=== PATIENT | female | born 1985 | race Caucasian/White ===

== ENCOUNTER 2019-02-22 13:35 | Emergency (ER) | payer MEDICAID ==
[~2019-02-22] VITALS: Ht 167.6 cm; Wt 95.5 kg
[2019-02-22 14:43] LABS: CLARITY,URINE SLIGHTLY CLOUDY (Clear); COLOR,URINE STRAW (Yellow); GLUCOSE, URINE NEGATIVE (Neg); KETONES,URINE NEGATIVE (Neg); LEUKOCYTE ESTERASE ,URINE TRACE (Neg); NITRITES, URINE NEGATIVE (Neg); OCCULT BLOOD,URINE NEGATIVE (Neg); PROTEIN,URINE NEGATIVE (Neg); UROBILINOGEN,URINE 0.2 E.U/dL (0.2-1.0)
[2019-02-22 14:44] LABS: UA COLLECTION TYPE CLN CATCH MIDSTREAM
--- NOTE | 2019-02-22 14:52 | NUR ---
ATTEMPTED TO ASSIST WITH BLOOD DRAW USING ULTRASOUND, PT REFUSES ANY LABS AT THIS TIME
[2019-02-22 14:53] LABS: BACTERIA,URINE 1+ /HPF (Neg); MUCUS STRANDS FEW /LPF (Neg); RBC,URINE 0-2 /HPF (0-2); SQUAMOUS EPITHELIAL CELL,UR FEW /LPF (FEW); WBC,URINE 0-4 /HPF (0-4)
[2019-02-22 14:58] LABS: URINE HCG NEGATIVE (NEG)
[2019-02-22 15:08] LABS: BASOPHILS # (AUTO) 0.1 X10'3 (0-0.2); BASOPHILS % (AUTO) 1.1 % (0-1); EOSINOPHILS # (AUTO) 0.5 X10'3 (0-0.9); EOSINOPHILS % (AUTO) 4.8 % (0-6); HEMATOCRIT 38.3 % (35.0-45.0); LYMPHOCYTES # (AUTO) 2.6 X10'3 (1.1-4.8); LYMPHOCYTES % (AUTO) 23.6 % (21-51); MEAN CORPUSCULAR HEMOGLOBIN 30.8 PG (27.0-31.0); MEAN CORPUSCULAR VOLUME 90.6 FL (78-98); MEAN PLATELET VOLUME 7.5 FL (7.4-10.4); MONOCYTES # (AUTO) 0.5 X10'3 (0-0.9); MONOCYTES % (AUTO) 4.6 % (2-12); NEUTROPHILS # (AUTO) 7.3 X10'3 (1.8-7.7); NEUTROPHILS % (AUTO) 65.9 % (42-75); PLATELET COUNT 392 X10'3 (140-440); RED BLOOD COUNT 4.23 X10'6 (4.20-5.60); RED CELL DISTRIBUTION WIDTH 14.4 % (11.5-14.5)
[2019-02-22 15:09] LABS: URINE AMPHETAMINE SCREEN NEGATIVE (Neg); URINE BARBITUATE SCREEN NEGATIVE (Neg); URINE BENZODIAZEPINES SCREEN NEGATIVE (Neg); URINE CANNABINOID SCREEN POSITIVE (Neg); URINE COCAINE SCREEN NEGATIVE (Neg); URINE METHADONE SCREEN NEGATIVE (Neg); URINE OPIATE SCREEN NEGATIVE (Neg); URINE PHENCYCLIDINE SCREEN NEGATIVE (Neg)
--- NOTE | 2019-02-22 15:15 | NUR ---
Patient was moved from bed 16 to bed 23.
[2019-02-22] MEDS ORDERED: ATOR10TA87 PO (15:40)
[2019-02-22] MEDS ORDERED: ESCI10TA54 PO (15:40)
[2019-02-22] MEDS ORDERED: BUSP10TA11 PO (15:40)
[2019-02-22] MEDS ORDERED: PROP10TA10 PO (15:40)
[2019-02-22] MEDS ORDERED: ARIP5TAB14 PO (15:57)
[2019-02-22] MEDS ORDERED: HYDR-3686 PO (15:57)
[2019-02-22] MEDS ORDERED: IBUP-1984 PO (15:57)
--- NOTE | 2019-02-22 16:17 | NUR ---
Assumed pt care. Agreed with initial assessment done by Flor RAYMOND.
[2019-02-22 16:18] LABS: ALANINE AMINOTRANSFERASE 70 U/L (12-78); ALBUMIN 3.9 G/DL (3.4-5.0); ALKALINE PHOSPHATASE 125 IU/L (46-116); ANION GAP 6 (8-16); ASPARTATE AMINO TRANSFERASE 30 U/L (10-37); BILIRUBIN,TOTAL 0.4 MG/DL (0.1-1.0); BLOOD UREA NITROGEN 18 MG/DL (7-18); BUN/CREATININE RATIO 22.5 (6.6-38.0); CALCIUM 9.2 MG/DL (8.5-10.1); CHLORIDE 105 MMOL/L (99-107); GLUCOSE 94 MG/DL (70-104); POTASSIUM 3.7 MMOL/L (3.5-5.1); SODIUM 140 MMOL/L (135-145); TOTAL CARBON DIOXIDE 29.4 MMOL/L (24-32); TOTAL PROTEIN 7.7 G/DL (6.4-8.2); eGFR 82 ML/MIN
[2019-02-22 16:28] LABS: BETA HCG,QUANTITATIVE 2 mIU/ml; ETHANOL < 0.010 GM/DL (0.0-0.010)
[2019-02-22] MEDS ORDERED: hydrOXYzine 25 MG tablet PO PRN (16:55)
--- NOTE | 2019-02-22 17:29 | NUR ---
Packet has been faxed to [facility]
--- NOTE | 2019-02-22 18:35 | NUR ---
Nurse to Nurse report done for [facility] [place].
--- NOTE | 2019-02-22 18:50 | NUR ---
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 She reports being even with a negative test and reports being "famous on social media." but states it under all her aliases. She talks about her being famous and states "I talk to thousands of people at a time." She reports that she ended up in [place] from [place] because her kicked her out. She says her Aunt Anuja brought her to a counseling center where she was put on a 5150 and brought to the ER because she walked in to the counseling center and she then stated "I showed them "here is my crazy." and they said wow that's crazy, so now I'm here." Patient has been cooperative and friendly.
--- NOTE | 2019-02-22 19:24 | NUR ---
[facility] called and reported the patient was accepted to [facility] [address] [facility] will be here to transport patient at 2014.
[2019-02-22] MEDS ORDERED: busPIRone 5mg tablet PO SCH (20:00)
[2019-02-22] MEDS ORDERED: propranolol 10mg tablet PO SCH (20:00)
[2019-02-22 20:42] VITALS: BP 104/61
[2019-02-23] MEDS ORDERED: ibuprofen tablet 400 MG TABLET PO SCH
[2019-02-23] MEDS ORDERED: aripiprazole 5mg tablet PO SCH (08:00)
[2019-02-23] MEDS ORDERED: ESCITALOPRAM OXALATE 5 MG TABLET PO SCH (08:00)
[2019-02-23] MEDS ORDERED: atorvastatin 10mg tablet PO SCH (08:00)
== END 2019-02-22 20:47 ==
LOC: ER 13:36
DX: F22 Delusional disorders (principal); F20.9 Schizophrenia, unspecified; F31.9 Bipolar disorder, unspecified; E03.9 Hypothyroidism, unspecified; F12.90 Cannabis use, unspecified, uncomplicated; Z88.0 Allergy status to penicillin; Z79.899 Other long term (current) drug therapy
CPT/HCPCS: 36415; 80053; 80305; 80320; 81001; 81025; 84443; 84702; 85025; 99285; Z7610

== ENCOUNTER 2021-05-03 13:09 | Emergency (ER) | payer MEDICAID, OTHER ==
[~2021-05-03] VITALS: Ht 165.1 cm; Wt 105.0 kg
[2021-05-03 13:09] VITALS: BP 139/80
[~2021-05-03 13:09] MED LIST: ARIP5TAB14 PO; ATOR10TA87 PO; BUSP10TA11 PO; ESCI-8 PO; HYDR-3686 PO; IBUP-1984 PO; PROP10TA10 PO
[2021-05-03] MEDS ORDERED: AZI25OT PO (14:43)
[2021-05-03] MEDS ORDERED: BENZ-38 PO (14:44)
== END 2021-05-03 15:35 | disposition home or self-care (01) ==
LOC: ER 13:11
DX: J06.9 Acute upper respiratory infection, unspecified (principal); Z20.822 Contact with and (suspected) exposure to COVID-19; R51.9 Headache, unspecified; R09.89 Other specified symptoms and signs involving the circulatory and respiratory systems; R05.9 Cough, unspecified; R06.02 Shortness of breath; R50.9 Fever, unspecified; J45.909 Unspecified asthma, uncomplicated; F31.9 Bipolar disorder, unspecified; F20.9 Schizophrenia, unspecified; F12.90 Cannabis use, unspecified, uncomplicated; Z88.0 Allergy status to penicillin; Z79.2 Long term (current) use of antibiotics; Z79.899 Other long term (current) drug therapy
CPT/HCPCS: 71045; 87635; 99284; C9803

== ENCOUNTER 2021-12-27 02:21 | Inpatient (IN) | payer MEDICARE, MEDICAID ==
[2021-12-27] VITALS (15 sets, daily range): BP systolic 106–126; BP diastolic 60–70
[~2021-12-27] VITALS: Ht 165.1 cm; Wt 104.0 kg
[2021-12-27] MEDS ORDERED: normal saline 1000ML IV soln IVB ONE (02:40)
[2021-12-27] MEDS ORDERED: ketorolac trometh. 30mg/ml inj. IV ONE (02:40)
[2021-12-27 02:47] LABS: BASOPHILS # (AUTO) 0.1 X10'3 (0-0.2); BASOPHILS % (AUTO) 0.3 % (0-1); EOSINOPHILS # (AUTO) 0.1 X10'3 (0-0.9); EOSINOPHILS % (AUTO) 0.3 % (0-6); HEMATOCRIT 37.6 % (35.0-45.0); HEMOGLOBIN 12.9 g/dl (12.0-16.0); LYMPHOCYTES # (AUTO) 1.7 X10'3 (1.1-4.8); MEAN CORPUSCULAR HGB CONC 34.2 g/dL (33.0-36.5); MEAN CORPUSCULAR VOLUME 87.6 FL (78-98); MEAN PLATELET VOLUME 7.3 FL (7.4-10.4); MONOCYTES # (AUTO) 0.4 X10'3 (0-0.9); MONOCYTES % (AUTO) 1.8 % (2-12); NEUTROPHILS # (AUTO) 18.9 X10'3 (1.8-7.7); NEUTROPHILS % (AUTO) 89.6 % (42-75); PLATELET COUNT 416 X10'3 (140-440); RED CELL DISTRIBUTION WIDTH 13.9 % (11.5-14.5); WHITE BLOOD COUNT 21.2 X10'3 (4.5-11.0)
[2021-12-27 03:00] LABS: ALANINE AMINOTRANSFERASE 32 U/L (12-78); ALBUMIN 3.8 G/DL (3.4-5.0); ALBUMIN/GLOBULIN RATIO 0.8 (1.1-1.5); ALKALINE PHOSPHATASE 105 IU/L (46-116); ANION GAP 11 (8-16); ASPARTATE AMINO TRANSFERASE 18 U/L (10-37); BILIRUBIN,TOTAL 0.4 MG/DL (0.1-1.0); BLOOD UREA NITROGEN 11 MG/DL (7-18); BUN/CREATININE RATIO 13.8 (6.6-38.0); CALCIUM 10.2 MG/DL (8.5-10.1); CHLORIDE 100 MMOL/L (99-107); GLUCOSE 137 MG/DL (70-104); LIPASE 63 U/L (73-393); POTASSIUM 4.3 MMOL/L (3.5-5.1); SODIUM 138 MMOL/L (135-145); TOTAL CARBON DIOXIDE 26.6 MMOL/L (24-32); TOTAL PROTEIN 8.6 G/DL (6.4-8.2); eGFR 81 ML/MIN
[2021-12-27] MEDS ORDERED: LAMO150T2 PO (04:25)
[2021-12-27] MEDS ORDERED: IBUP-1984 PO (04:25)
[2021-12-27] MEDS ORDERED: morphine 4 MG/ML inj SYRINge IV ONE (04:25)
[2021-12-27] MEDS ORDERED: ondansetron/PF 4mg/2ml inj IV ONE (04:25)
[2021-12-27] MEDS ORDERED: HYDR-3686 PO (04:25)
[2021-12-27] MEDS ORDERED: BUPR150T8 PO (04:25)
[2021-12-27 04:32] LABS: CLARITY,URINE CLEAR (Clear); COLOR,URINE YELLOW (Yellow); GLUCOSE, URINE NEGATIVE (Neg); KETONES,URINE 40 mg/dl (Neg); LEUKOCYTE ESTERASE ,URINE NEGATIVE (Neg); NITRITES, URINE NEGATIVE (Neg); OCCULT BLOOD,URINE SMALL (Neg); PROTEIN,URINE NEGATIVE (Neg); UROBILINOGEN,URINE 0.2 E.U/dL (0.2-1.0)
[2021-12-27 04:37] LABS: URINE HCG NEGATIVE (NEG)
[2021-12-27 04:38] LABS: UA COLLECTION TYPE CLN CATCH MIDSTREAM
[2021-12-27 04:40] LABS: WBC,URINE 0-4 /HPF (0-4)
[2021-12-27 04:41] LABS: BACTERIA,URINE FEW /HPF (Neg); MUCUS STRANDS FEW /LPF (Neg); SQUAMOUS EPITHELIAL CELL,UR FEW /LPF (FEW)
[2021-12-27] MEDS ORDERED: CefTRIAXone 2gm/D5W 50ml BAG 50 ML IV ONE (04:50)
[2021-12-27] MEDS ORDERED: ondansetron/PF 4mg/2ml inj IV PRN ×2 (04:55→09:15)
[2021-12-27] MEDS ORDERED: magnesium Cl slow-release 64mg tablet PO PRN (04:55)
[2021-12-27] MEDS ORDERED: magnesium 4gm in 100ml NS 100 ML IV PRN (04:55)
[2021-12-27] MEDS ORDERED: magnesium hydroxide 30ml (MOM) UD suspension PO PRN (04:55)
[2021-12-27] MEDS ORDERED: potassium Cl 40MEQ/1/2NS 520ml 520 ML IV PRN (04:55)
[2021-12-27] MEDS ORDERED: potassium Cl 20 mEq SR tablet PO PRN ×2 (04:55)
[2021-12-27] MEDS ORDERED: acetaminophen 325mg tablet PO PRN (04:55)
[2021-12-27] MEDS ORDERED: mag hydrox/Alum hydrox/simeth 30ml oral suspension PO PRN (04:55)
[2021-12-27] MEDS ORDERED: BUPR-317 PO (05:08)
[2021-12-27] MEDS ORDERED: hydrOXYzine 25 MG tablet PO PRN (05:15)
[2021-12-27] MEDS: normal saline 1000ml 1,000 ML IV SCH ×3 (05:25→20:16)
[2021-12-27] MEDS: morphine 2 MG/ML inj. syringe IV PRN ×4 (07:43→21:03)
[2021-12-27] MEDS: lamoTRIgine 100mg tablet PO SCH (08:00)
[2021-12-27] MEDS: docusate sod 100mg capsule PO SCH ×2 (08:00→20:15)
[2021-12-27] MEDS ORDERED: QUEtiapine 25mg tablet PO SCH (08:00)
[2021-12-27] MEDS: K and/or MAG REPLACEMENT MC SCH ×2 (08:00→20:00)
[2021-12-27] MEDS: buPROPion SR 150mg tablet PO SCH (08:00)
[2021-12-27] MEDS: lamoTRIgine 25mg tablet PO SCH (08:00)
--- NOTE | 2021-12-27 08:32 | NUR ---
partner Jeferson Tompkins [phone]. may give full disclosure to him.
[2021-12-27] MEDS ORDERED: BUPIVAcaine/PF 2.5 mg/ml (0.25%) 30ml vial ONE (08:36)
--- NOTE | 2021-12-27 08:39 | NUR ---
TO OR VIA GURNEY, ACCOMPANIED BY OR TECH. PT IN STABLE CONDITION.
[2021-12-27] MEDS ORDERED: midazolam 1 mg/ML 2ml injection ONE (09:11)
[2021-12-27] MEDS ORDERED: fentaNYL/PF 50MCG/1 ML 2ML syringe ONE (09:11)
[2021-12-27] MEDS ORDERED: propofol inj 20 ML IV ONE (09:11)
[2021-12-27] MEDS ORDERED: LIDOcaine 2% (20mg/ml) 5ml vial ONE (09:12)
[2021-12-27] MEDS ORDERED: ringers solution, lacted 1,000 ML IV SCH (09:15)
[2021-12-27] MEDS ORDERED: proCHLORperazine 10 MG/2 ml inj IV PRN (09:15)
[2021-12-27] MEDS ORDERED: morphine 4 MG/ML inj SYRINge IV PRN (09:15)
[2021-12-27] MEDS ORDERED: morphine 2 MG/ML inj. syringe IV PRN (09:15)
[2021-12-27] MEDS ORDERED: meperidine/PF 25mg/ml syringe IV PRN ×3 (09:15)
[2021-12-27] MEDS ORDERED: ondansetron/PF 4mg/2ml inj ONE (09:37)
[2021-12-27] MEDS ORDERED: dexamethasone sod phosphate 4mg/ml inj. ONE (09:37)
[2021-12-27] MEDS ORDERED: CefTRIAXone 2000mg inj ONE (09:39)
[2021-12-27] MEDS ORDERED: meperidine/PF 25mg/ml syringe ONE (09:55)
--- NOTE | 2021-12-27 10:45 | NUR ---
Received from OR via BED, accompanied by Anesthesiologist and report given by Anesthesiologist. PATIENT WAKING UP, NO S/S OF PAIN, V/S WNL, SCD ON, 20G TO LUE, ABDOMEN LAP SITES X4 DERMABONDED CLEAN W/ NO S/S OF COMPLICATIONS
--- NOTE | 2021-12-27 11:12 | NUR ---
Patient in room ED 7. I have received report from Valdez RAYMOND and had the opportunity to ask questions and awaiting patients arrival
--- NOTE | 2021-12-27 11:25 | NUR ---
PATIENT WAKING UP, NO S/S OF PAIN, V/S WNL, SCD ON, 20G TO LUE, ABDOMEN LAP SITES X4 DERMABONDED CLEAN W/ NO S/S OF COMPLICATIONS. PATIENT TAKEN TO 349B ROOM WITH ALL BELONGINGS AND HOOKED UP TO MONITORS IN ROOM AND GIVEN CALL LIGHT, REPORT GIVEN TO RN WHO HAS TAKEN OVER PATIENT CARE.
--- NOTE | 2021-12-27 18:01 | NUR ---
patient appears stable four durobond sites CDI. commenced on VS stable. Ambulated x1 300ft, sig other visiting. passing small amounts of gas. Morphine x2 for pain with good results.
--- NOTE | 2021-12-27 18:18 | NUR ---
Problems reprioritized. Patient report given, questions answered & plan of care reviewed with renan RAYMOND.
--- NOTE | 2021-12-27 18:30 | NUR ---
Patient in room [facility]. I have received report from PIERCE and had the opportunity to ask questions and assume patient care.
[2021-12-28 02:00] VITALS: BP 96/56
[2021-12-28] MEDS: morphine 2 MG/ML inj. syringe IV PRN ×2 (02:35→07:56)
[2021-12-28 06:00] VITALS: BP 113/66
--- NOTE | 2021-12-28 06:29 | NUR ---
Patient in room [facility]. I have received report from Avani RAYMOND and had the opportunity to ask questions and assume patient care.
[2021-12-28 06:40] LABS: BASOPHILS # (AUTO) 0.1 X10'3 (0-0.2); BASOPHILS % (AUTO) 0.4 % (0-1); EOSINOPHILS % (AUTO) 0.2 % (0-6); HEMATOCRIT 32.2 % (35.0-45.0); HEMOGLOBIN 10.5 g/dl (12.0-16.0); LYMPHOCYTES # (AUTO) 1.9 X10'3 (1.1-4.8); LYMPHOCYTES % (AUTO) 12.7 % (21-51); MEAN CORPUSCULAR HEMOGLOBIN 29.1 PG (27.0-31.0); MEAN CORPUSCULAR HGB CONC 32.5 g/dL (33.0-36.5); MEAN CORPUSCULAR VOLUME 89.3 FL (78-98); MEAN PLATELET VOLUME 7.7 FL (7.4-10.4); MONOCYTES # (AUTO) 0.8 X10'3 (0-0.9); MONOCYTES % (AUTO) 5.6 % (2-12); NEUTROPHILS % (AUTO) 81.1 % (42-75); PLATELET COUNT 324 X10'3 (140-440); RED BLOOD COUNT 3.61 X10'6 (4.20-5.60); RED CELL DISTRIBUTION WIDTH 14.4 % (11.5-14.5); WHITE BLOOD COUNT 14.7 X10'3 (4.5-11.0)
[2021-12-28 06:48] LABS: ALANINE AMINOTRANSFERASE 37 U/L (12-78); ALBUMIN 2.6 G/DL (3.4-5.0); ALBUMIN/GLOBULIN RATIO 0.7 (1.1-1.5); ALKALINE PHOSPHATASE 78 IU/L (46-116); ANION GAP 7 (8-16); ASPARTATE AMINO TRANSFERASE 26 U/L (10-37); BILIRUBIN,TOTAL 0.3 MG/DL (0.1-1.0); BLOOD UREA NITROGEN 7 MG/DL (7-18); BUN/CREATININE RATIO 10.8 (6.6-38.0); CHLORIDE 107 MMOL/L (99-107); CREATININE 0.65 MG/DL (0.40-0.90); GLUCOSE 114 MG/DL (70-104); MAGNESIUM 1.9 MG/DL (1.5-2.4); POTASSIUM 3.7 MMOL/L (3.5-5.1); SODIUM 139 MMOL/L (135-145); TOTAL CARBON DIOXIDE 25.2 MMOL/L (24-32); TOTAL PROTEIN 6.5 G/DL (6.4-8.2); eGFR > 90 ML/MIN
--- NOTE | 2021-12-28 06:48 | NUR ---
Problems reprioritized. Patient report given, questions answered & plan of care reviewed with
[2021-12-28] MEDS: docusate sod 100mg capsule PO SCH (07:21)
[2021-12-28] MEDS: lamoTRIgine 100mg tablet PO SCH (07:22)
[2021-12-28] MEDS: lamoTRIgine 25mg tablet PO SCH (07:23)
[2021-12-28] MEDS: buPROPion SR 150mg tablet PO SCH (07:24)
[2021-12-28 07:30] VITALS: BP 112/68
[2021-12-28] MEDS ORDERED: CefTRIAXone/D5W-Rocephin 1gm 50 ML IV SCH (08:00)
[2021-12-28] MEDS: K and/or MAG REPLACEMENT MC SCH (08:00)
--- NOTE | 2021-12-28 08:45 | NUR ---
as instructor, i reviewed student nurse charting
--- NOTE | 2021-12-28 09:10 | NUR ---
Malnutrition consult: Pt s/p laparoscopic cholecystectomy this admit per EMR. Pt does not think she has lost a significant amount of wt recently though has had some decrease in appetite over the last couple of weeks r/t abd pain. No visible signs of muscle/fat wasting observed. No edema noted. Pt does not meet minimum criteria for malnutrition at this time. Addendum: 12/28/21 at [address] Amended: Links added.
[2021-12-28 11:00] VITALS: BP 125/70
[2021-12-28] MEDS ORDERED: HYDR-3965 PO (11:49)
[2021-12-28] MEDS ORDERED: FLU VACC QS2022-23(6MOS UP)/PF 60 MCG/0.5 ML SYRINGE IMVAC ONE (12:00)
--- NOTE | 2021-12-28 15:26 | NUR ---
ALL DC INSTRUCTIONS GIVEN TO PATIENT,patient DC home via private car with friend to home.
--- NOTE | 2021-12-30 10:41 | NUR ---
Case Management DC follow up:Spoke with Patient via telephone. S/P: Patient Reports:, Denies: Acute/continuous CP, emergent SOB, resp distress, N/V, vertigo, syncope episodes, .Verbalizes her abdominal incisions are intact, no s/s of infection.Verbalizes abdominal pain as a 2-3 on pain scale of one to ten.Verbalizes abdominal distention has decreased, and she has had a bowel movement. Denies : dysuria, hematuria, retention, hematochezia, melena, unexplained fever chills, JAVIER, blurry vision, s/s of stroke/BE-FAST.Verbalizes compliance with aftercare; uses Incentive Spirometer as instructed. Verbalizes understanding of new Rx : why prescribed; continues;/resumes current Rx as ordered.Verbalizes understanding of s/s that warrant a 9=11/ER visit for further evaluation.Plans to call office to schedule follow up appointment.Verbalizes nursing staff were amazing.Needs met, questions/concerns addressed at DC. No further questions/concerns regarding recent hospital stay and/or DC status at this time.
== END 2021-12-28 14:00 | disposition home or self-care (01) | DRG 419 ==
LOC: ER 02:22 → ED HOLD 04:56 → SUR 3N 11:31
PROVIDERS: ADMIT Internal Medicine; ATTEND Family Medicine
PROC: 0FB04ZX Excision of Liver, Percutaneous Endoscopic Approach, Diagnostic (ICD-10-PCS; 2021-12-27)
PROC: 0FT44ZZ Resection of Gallbladder, Percutaneous Endoscopic Approach (ICD-10-PCS; principal; 2021-12-27 09:20)
PROC: 3E02340 Introduction of Influenza Vaccine into Muscle, Percutaneous Approach (ICD-10-PCS; 2021-12-28)
DX: K80.62 Calculus of gallbladder and bile duct with acute cholecystitis without obstruction (principal); D72.825 Bandemia; Z20.822 Contact with and (suspected) exposure to COVID-19; F41.1 Generalized anxiety disorder; K75.81 Nonalcoholic steatohepatitis (NASH); F20.9 Schizophrenia, unspecified; F31.9 Bipolar disorder, unspecified; J45.909 Unspecified asthma, uncomplicated; G43.909 Migraine, unspecified, not intractable, without status migrainosus; K58.9 Irritable bowel syndrome, unspecified; Z23 Encounter for immunization; Z88.0 Allergy status to penicillin; Z79.899 Other long term (current) drug therapy
CPT/HCPCS: 36415; 76700; 80053; 81001; 81025; 83690; 83735; 83970; 84145; 85025; 87081; 87811; 90686; 96361; 96374; 96375; 99285; A4215; A4618; A7000; G0378; J0696; J1100; J1885; J2175; J2250; J2270; J2405; J2704; J3010; J3490; J7030; J7120

== ENCOUNTER 2021-12-31 12:45 | Emergency (ER) | payer MEDICARE, MEDICAID ==
[~2021-12-31] VITALS: Ht 165.1 cm; Wt 102.0 kg
[~2021-12-31 12:45] MED LIST changes: -ARIP5TAB14 PO; -ATOR10TA87 PO; +BUPR-317 PO; -BUSP10TA11 PO; -ESCI-8 PO; +HYDR-3965 PO; +LAMO150T2 PO; -PROP10TA10 PO
[2021-12-31 13:19] LABS: BASOPHILS # (AUTO) 0.1 X10'3 (0-0.2); EOSINOPHILS # (AUTO) 0.3 X10'3 (0-0.9); EOSINOPHILS % (AUTO) 2.9 % (0-6); HEMATOCRIT 35.8 % (35.0-45.0); HEMOGLOBIN 12.1 g/dl (12.0-16.0); LYMPHOCYTES # (AUTO) 2.2 X10'3 (1.1-4.8); LYMPHOCYTES % (AUTO) 19.1 % (21-51); MEAN CORPUSCULAR HEMOGLOBIN 29.6 PG (27.0-31.0); MEAN CORPUSCULAR HGB CONC 33.8 g/dL (33.0-36.5); MEAN CORPUSCULAR VOLUME 87.6 FL (78-98); MONOCYTES # (AUTO) 0.5 X10'3 (0-0.9); MONOCYTES % (AUTO) 4.2 % (2-12); NEUTROPHILS # (AUTO) 8.2 X10'3 (1.8-7.7); NEUTROPHILS % (AUTO) 72.8 % (42-75); PLATELET COUNT 439 X10'3 (140-440); RED BLOOD COUNT 4.09 X10'6 (4.20-5.60); RED CELL DISTRIBUTION WIDTH 13.9 % (11.5-14.5); WHITE BLOOD COUNT 11.3 X10'3 (4.5-11.0)
[2021-12-31] MEDS ORDERED: SUMA25TA35 PO (13:25)
[2021-12-31 13:34] LABS: ALANINE AMINOTRANSFERASE 54 U/L (12-78); ALBUMIN/GLOBULIN RATIO 0.6 (1.1-1.5); ALKALINE PHOSPHATASE 111 IU/L (46-116); ANION GAP 9 (8-16); ASPARTATE AMINO TRANSFERASE 30 U/L (10-37); BILIRUBIN,TOTAL 0.6 MG/DL (0.1-1.0); BLOOD UREA NITROGEN 9 MG/DL (7-18); BUN/CREATININE RATIO 11.4 (6.6-38.0); CALCIUM 9.2 MG/DL (8.5-10.1); CHLORIDE 101 MMOL/L (99-107); CREATININE 0.79 MG/DL (0.40-0.90); GLUCOSE 103 MG/DL (70-104); LIPASE 52 U/L (73-393); POTASSIUM 3.9 MMOL/L (3.5-5.1); SODIUM 137 MMOL/L (135-145); TOTAL CARBON DIOXIDE 26.7 MMOL/L (24-32); eGFR 82 ML/MIN
[2021-12-31 13:58] VITALS: BP 116/64
== END 2021-12-31 14:02 | disposition home or self-care (01) ==
LOC: ER 12:46
DX: T81.9XXA Unspecified complication of procedure, initial encounter (principal); G43.909 Migraine, unspecified, not intractable, without status migrainosus; J45.909 Unspecified asthma, uncomplicated; F20.9 Schizophrenia, unspecified; F31.9 Bipolar disorder, unspecified; F12.10 Cannabis abuse, uncomplicated; Z88.0 Allergy status to penicillin; Z79.899 Other long term (current) drug therapy; Z90.49 Acquired absence of other specified parts of digestive tract
CPT/HCPCS: 36415; 80053; 83690; 85025; 99283